=== PATIENT | male | born 1955 | race Hispanic/Latino ===

== ENCOUNTER 2020-02-15 07:21 | Outpatient (CLI) | payer BC ==
--- NOTE | 2020-02-15 09:55 | CT ---
CT CHEST WITHOUT CONTRAST: DATE: 02/15/2020. PROVIDED CLINICAL HISTORY: I Tobacco use. FINDINGS: Comparison is made with the study dated 08/17/2016. The heart, pericardium, and great vessels are suboptimally evaluated in the absence of IV contrast ma terial. Vascular calcification including coronary calcium is demonstrated. There is no evidence for thoracic lymph node enlargement with limitations due to lack of IV contrast. The airway appears patent and of normal caliber. The lungs are free of significant opacity. No pleural fluid or pneumothorax apparent. The visualized portions of the upper abdomen demonstrate no significant abnormality. The osseous structures demonstrate no concerning lytic or blastic lesions. IMPRESSION: Lung RADS category 1 - negative. Continued annual screening. POS: AH
== END 2020-02-15 07:22 | disposition home or self-care (01) ==
LOC: BICCT 07:21
PROVIDERS: ATTEND Family Medicine
DX: Z12.2 Encounter for screening for malignant neoplasm of respiratory organs (principal); F17.210 Nicotine dependence, cigarettes, uncomplicated
CPT/HCPCS: G0297

== ENCOUNTER 2021-02-23 14:44 | Outpatient (CLI) | payer BC | END 2021-02-23 14:45 | disposition home or self-care (01) | LOC: BICCT 14:44 | PROVIDERS: ATTEND Family Medicine | DX: Z12.2 Encounter for screening for malignant neoplasm of respiratory organs (principal); F17.210 Nicotine dependence, cigarettes, uncomplicated | CPT/HCPCS: 71271 ==

== ENCOUNTER 2025-02-15 10:07 | Outpatient (CLI) | payer MEDICARE | END 2025-02-15 10:08 | disposition home or self-care (01) | LOC: MRI 10:07 | PROVIDERS: ATTEND Internal Medicine Gastroenterology | DX: K50.90 Crohn's disease, unspecified, without complications (principal) | CPT/HCPCS: 74183 ==